=== PATIENT | male | born 1970 | race Caucasian/White ===

== ENCOUNTER 2016-08-18 17:17 | Emergency (ER) | payer BC ==
[2016-08-18 17:22] VITALS: BP 122/90; PULSE 82; TEMP 98.1; BMI 37.6
--- NOTE | 2016-08-18 18:30 | PDOC ---
History of Present Illness - General History Source: Patient Exam Limitations: No Limitations - History of Present Illness Initial Comments: 08/18/16 19:02 The patient is 45 year old male with a significant past medical history of acid reflux, carpal tunnel syndrome, who presents to the ED with 2 episodes of spitting up black chunks since this morning. Patient states the first episode was when he first woke up this morning and the second at 3 PM. Patient states he has some throat pain as well, and feels like there is blood in his throat while lying down. He denies nausea, vomiting, diarrhea, hematochezia. He complains of some lightheadedness as well. Denies losing consciousness, denies trauma. Patient states he had 2 cups of coffee today. He states he only ate wings last night, denies drinking any alcohol. Patient denies history of GERD, liver disease. Patient drinks only on holidays. Patient takes 2 alleves a day. <Darren Gaines - Last Filed: 08/18/16 19:04> <Solo Malik - Last Filed: 08/19/16 08:21> - General Chief Complaint: Vomiting Blood Stated Complaint: SPITTING UP BLOOD Time Seen by Provider: 08/18/16 18:24 Past History <Darren Gaines - Last Filed: 08/18/16 19:04> - Past Medical History Anemia: No Asthma: No Cancer: No Cardiac Disorders: No CVA: No COPD: No CHF: No Dementia: No Diabetes: No GI Disorders: No Disorders: No HTN: No Hypercholesterolemia: No Liver Disease: No Seizures: No Thyroid Disease: No - Psycho/Social/Smoking Cessation Hx Anxiety: No Suicidal Ideation: No Smoking History: Current some day smoker Have you smoked in the past 12 months: No Number of Cigarettes Smoked Daily: 2 Information on smoking cessation initiated: Yes 'Breaking Loose' booklet given: 08/18/16 Hx Alcohol Use: No Drug/Substance Use Hx: No Substance Use Type: None Hx Substance Use Treatment: No <Solo Malik - Last Filed: 08/19/16 08:21> - Past Medical History Allergies/Adverse Reactions: Allergies Allergy/AdvReac Type Severity Reaction Status Date / Time No Known Drug Allergies Allergy Verified 08/18/16 17:19 Home Medications: Ambulatory Orders Pantoprazole Sodium [Protonix] 40 mg PO DAILY #20 tablet. 08/18/16 Review of Systems - Review of Systems Able to Perform ROS?: Yes Comments:: 08/18/16 19:02 CONSTITUTIONAL: Absent: fever, chills, diaphoresis, generalized weakness, malaise, loss of appetite HEENT: Absent: rhinorrhea, nasal congestion, throat pain, throat swelling, difficulty swallowing, mouth swelling, ear pain, eye pain, visual Changes CARDIOVASCULAR: Absent: chest pain, syncope, palpitations, irregular heart rate, lightheadedness , peripheral edema RESPIRATORY: Absent: cough, shortness of breath, dyspnea with exertion, orthopnea, wheezing, stridor, hemoptysis GASTROINTESTINAL: Present: Spitting up "black chunks" Absent: abdominal pain, abdominal distension, nausea, vomiting, diarrhea, constipation, melena, hematochezia GENITOURINARY: Absent: dysuria, frequency, urgency, hesitancy, hematuria, flank pain, genital pain MUSCULOSKELETAL: Absent: myalgia, arthralgia, joint swelling SKIN: Absent: rash, itching, pallor HEMATOLOGIC/IMMUNOLOGIC: Absent: easy bleeding, easy bruising, lymphadenopathy, frequent infections ENDOCRINE: Absent: unexplained weight gain, unexplained weight loss, heat intolerance, cold intolerance NEUROLOGIC: Absent: headache, focal weakness or paresthesias, dizziness, unsteady gait, seizure, mental status changes, bladder or bowel incontinence PSYCHIATRIC: Absent: anxiety, depression, suicidal or homicidal ideation, hallucinations. <Darren Gaines - Last Filed: 08/18/16 19:04> *Physical Exam - Vital Signs Last Vital Signs Temp Pulse Resp BP Pulse Ox 98.1 F 82 16 122/90 100 08/18/16 17:18 08/18/16 17:18 08/18/16 17:18 08/18/16 17:18 08/18/16 17:18 - Physical Exam Comments: 08/18/16 19:03 GENERAL: Well developed, well nourished. Awake and alert. No acute distress. No orthostatic changes on exam. HEENT: Normocephalic, atraumatic. PERRLA, EOMI. No conjunctival pallor. Sclera are non- icteric. Moist mucous membranes. Oropharynx is clear. NECK: Supple. Full ROM. No JVD. Carotid pulses 2+ and symmetric, without bruits. No thyromegaly. No lymphadenopathy. CARDIOVASCULAR: Regular rate and rhythm. No murmurs, rubs, or gallops. Distal pulses are 2+ and symmetric. PULMONARY: No evidence of respiratory distress. Lungs clear to auscultation bilaterally. No wheezing, rales or rhonchi. ABDOMINAL: Soft. Non-tender. Non-distended. No rebound or guarding. No organomegaly. Normoactive bowel sounds. Stool is medium brown and non-melanotic MUSCULOSKELETAL Normal range of motion at all joints. No bony deformities or tenderness. No CVA tenderness. EXTREMITIES: No cyanosis. No clubbing. No edema. No calf tenderness. SKIN: Warm and dry. Normal capillary refill. No rashes. No jaundice. No pallor of the conjunctiva or the skin. NEUROLOGICAL: Alert, awake, appropriate. Cranial nerves 2-12 intact. No deficits to light touch and temperature in face, upper extremities and lower extremities. No motor deficits in the in face, upper extremities and lower extremities. Normoreflexic in the upper and lower extremities. Normal speech. Toes are down- going bilaterally. Gait is normal without ataxia. PSYCHIATRIC: Cooperative. Good eye contact. Appropriate mood and affect. <Darren Gaines - Last Filed: 08/18/16 19:04> - Vital Signs Last Vital Signs Temp Pulse Resp BP Pulse Ox 98.1 F 82 16 122/90 100 08/18/16 17:18 08/18/16 17:18 08/18/16 17:18 08/18/16 17:18 08/18/16 17:18 <Solo Malik - Last Filed: 08/19/16 08:21> ED Treatment Course - LABORATORY CBC & Chemistry Diagram: 08/18/16 18:42 08/18/16 18:42 - ADDITIONAL ORDERS Additional order review: Laboratory Results 08/18/16 18:42 Urine Color Yellow Urine Appearance Clear Urine pH 6.5 Ur Specific [place] 1.010 Urine Protein Negative Urine Glucose (UA) Negative Urine Ketones Negative Urine Blood Negative Urine Nitrite Negative Urine Bilirubin Negative Urine Urobilinogen 0.2 e.u/dl Ur Leukocyte Esterase Negative 08/18/16 18:42 RBC 5.24 MCV 82.0 MCHC 33.0 RDW 12.2 MPV 9.2 Neutrophils % 60.5 Lymphocytes % 28.6 Monocytes % 9.3 Eosinophils % 1.0 Basophils % 0.6 <Darren Gaines - Last Filed: 08/18/16 19:04> - LABORATORY CBC & Chemistry Diagram: 08/18/16 18:42 08/18/16 18:42 <Solo Malik - Last Filed: 08/19/16 08:21> Medical Decision Making - Medical Decision Making 08/18/16 18:55 Orthostatics performed. There was no drop in blood pressure or increase in pulse from lying to the standing position Occult blood sample was sent. Stool was medium brown without melena or bright red blood Abdominal exam entirely negative. Patient appears stable without orthostatic changes. Probably no significant blood loss. Labs pending. Signed out to Dr. Nielsen 7 PM pending lab results and further medical treatment. 08/19/16 08:20 <Solo Malik - Last Filed: 08/19/16 08:21> *DC/Admit/Observation/Transfer - Attestations Scribe Attestion: 08/18/16 19:03 Documentation prepared by Darren Gaines, acting as medical referral coordinator for Solo Thomason MD. <Darren Gaines - Last Filed: 08/18/16 19:04> <Solo Malik - Last Filed: 08/19/16 08:21> Diagnosis at time of Disposition: History of hematemesis - Discharge Dispostion Disposition: HOME Condition at time of disposition: Stable - Prescriptions Prescriptions: Pantoprazole Sodium [Protonix] 40 mg PO DAILY #20 tablet.dr - Referrals Referrals: Uzair Lehman MD [Staff Physician] - 24 hours - Patient Instructions Printed Discharge Instructions: DI for Gastrointestinal Bleeding Additional Instructions: protonix 40 mg daily Light diet; avoid spicy/acidic/high-fat foods follow up with tomorrow as planned Return to ER if you have worsening symptoms
[2016-08-18 18:48] LABS: PH,URINE 6.5 (4.5-8); URINE APPEARANCE Clear; URINE BILIRUBIN Negative (NEGATIVE); URINE BLOOD Negative (NEGATIVE); URINE GLUCOSE (UA) Negative (NEGATIVE); URINE KETONE Negative (NEGATIVE); URINE LEUK ESTERASE Negative (NEGATIVE); URINE NITRITE Negative (NEGATIVE); URINE PROTEIN Negative (NEGATIVE); URINE UROBILINOGEN 0.2 E.U/dl (0.2-1.0)
[2016-08-18 18:50] LABS: URINE COLOR YELLOW
[2016-08-18 18:53] LABS: BASOPHIL 0.6 % (0-2.0); MEAN PLT VOLUME 9.2 fl (7.5-11.1); NEUTROPHILS 60.5 % (42.8-82.8); PLATELET COUNT 229 K/MM3 (134-434); RDW 12.2 % (11.9-15.9); WHITE BLOOD COUNT 6.9 K/mm3 (4.0-10.0)
[2016-08-18 19:04] LABS: ALK PHOS 45 U/L (32-92); ANION GAP 9 (8-16); BILIRUBIN,TOTAL 0.3 mg/dl (0.2-1.0); CALCIUM 9.1 mg/dl (8.4-10.2); CO2 26 mmol/L (22-28); CREATININE 1.1 mg/dl (0.6-1.3); GLUCOSE,RANDOM 97 mg/dl (74-106); SGOT/AST 19 U/L (10-42); SGPT/ALT 21 U/L (10-40)
[2016-08-18] MEDS ORDERED: PANTOPRAZOLE SODIUM 40 MG in SODIUM CHLORIDE 100 ML IVPB ONE (19:07)
[2016-08-18] MEDS ORDERED: PANTOPRAZOLE SODIUM 40 MG VIAL ONE (19:14)
--- NOTE | 2016-08-18 19:34 | PDOC ---
[id number]/90 100 08/18/16 17:18 08/18/16 17:18 08/18/16 17:18 08/18/16 17:18 08/18/16 17:18 ED Treatment Course - LABORATORY CBC & Chemistry Diagram: 08/18/16 18:42 08/18/16 18:42 - ADDITIONAL ORDERS Additional order review: Laboratory Results 08/18/16 08/18/16 18:42 18:42 Sodium 136 Potassium 3.8 Chloride 101 Carbon Dioxide 26 Anion Gap 9 BUN 15 Creatinine 1.1 Creat Clearance w eGFR > 60 Random Glucose 97 Calcium 9.1 Total Bilirubin 0.3 AST 19 ALT 21 Alkaline Phosphatase 45 Total Protein 7.0 Albumin 4.0 Urine Color Yellow Urine Appearance Clear Urine pH 6.5 Ur Specific [place] 1.010 Urine Protein Negative Urine Glucose (UA) Negative Urine Ketones Negative Urine Blood Negative Urine Nitrite Negative Urine Bilirubin Negative Urine Urobilinogen 0.2 e.u/dl Ur Leukocyte Esterase Negative 08/18/16 18:42 RBC 5.24 MCV 82.0 MCHC 33.0 RDW 12.2 MPV 9.2 Neutrophils % 60.5 Lymphocytes % 28.6 Monocytes % 9.3 Eosinophils % 1.0 Basophils % 0.6 Progress Note - Progress Note Progress Note: Care of this patient received from Dr. Chas Duque. Patient received Protonix 40 mg IVPB. Laboratory evaluation shows normal CBC and chemistry profile. Stool for heme is negative Patient will be discharged with follow-up with his PMD (Dr. Lehman). The patient states that he will make an appointment to see him tomorrow. Meanwhile , the patient should have a light diet and avoid spicy/acidic/high-fat foods. Protonix 40 mg daily by mouth prescription transmitted to patient's pharmacy. He should return to the ER if he has any pain or worsening of hematemesis. *DC/Admit/Observation/Transfer Diagnosis at time of Disposition: History of hematemesis - Discharge Dispostion Disposition: HOME Condition at time of disposition: Stable - Prescriptions Prescriptions: Pantoprazole Sodium [Protonix] 40 mg PO DAILY #20 tablet.dr - Referrals Referrals: Uzair Lehman MD [Staff Physician] - 24 hours - Patient Instructions Printed Discharge Instructions: DI for Gastrointestinal Bleeding Additional Instructions: protonix 40 mg daily Light diet; avoid spicy/acidic/high-fat foods follow up with tomorrow as planned Return to ER if you have worsening symptoms
[2016-08-18 19:37] LABS: STOOL FOR OCCULT BLOOD NEGATIVE (NEGATIVE)
== END 2016-08-18 20:20 | disposition home or self-care (01) ==
LOC: FER 17:17
PROC: 3E033GC Introduction of Other Therapeutic Substance into Peripheral Vein, Percutaneous Approach (ICD-10-PCS; principal; 2016-08-18)
DX: K92.0 Hematemesis (principal); F17.210 Nicotine dependence, cigarettes, uncomplicated; K21.9 Gastro-esophageal reflux disease without esophagitis
CPT/HCPCS: 36415; 80053; 81003; 82272; 85025; 86850; 86900; 86901; 99282-25